=== PATIENT | female | born 1965 | race Caucasian/White ===

== ENCOUNTER 2020-05-30 08:26 | Outpatient (CLI) | payer BC | END 2020-05-30 08:27 | disposition home or self-care (01) | LOC: CSHMRI 08:26 | PROVIDERS: ATTEND Orthopaedic Surgery | DX: M23.92 Unspecified internal derangement of left knee (principal); M23.007 Cystic meniscus, unspecified meniscus, left knee; R93.6 Abnormal findings on diagnostic imaging of limbs; M23.307 Other meniscus derangements, unspecified meniscus, left knee; M94.8X8 Other specified disorders of cartilage, other site ==

== ENCOUNTER 2020-12-24 08:24 | Outpatient (CLI) | payer BC | END 2020-12-24 08:25 | disposition home or self-care (01) | LOC: CSHMRI 08:24 | PROVIDERS: ATTEND Orthopaedic Surgery | DX: M25.562 Pain in left knee (principal); G89.29 Other chronic pain; R93.6 Abnormal findings on diagnostic imaging of limbs; Z98.890 Other specified postprocedural states ==

== ENCOUNTER 2021-10-24 15:02 | Outpatient (CLI) | payer BC | END 2021-10-24 15:03 | disposition home or self-care (01) | LOC: CSHMRI 15:02 | PROVIDERS: ATTEND Nurse Practitioner Family | DX: M54.16 Radiculopathy, lumbar region (principal); M51.26 Other intervertebral disc displacement, lumbar region; M51.36 Other intervertebral disc degeneration, lumbar region | CPT/HCPCS: 72148 ==

== ENCOUNTER 2024-12-22 16:40 | Emergency (ER) | payer BC ==
[2024-12-22] MEDS ORDERED: Azithromycin 250 MG TAB ONE (17:47)
[2024-12-22] MEDS ORDERED: predniSONE 20 MG TAB ONE (17:47)
== END 2024-12-22 17:50 | disposition home or self-care (01) ==
LOC: CSHERS 16:40
DX: J30.9 Allergic rhinitis, unspecified (principal); J32.9 Chronic sinusitis, unspecified
CPT/HCPCS: 99283; J7512